=== PATIENT | male | born 1975 | race Caucasian/White ===

== ENCOUNTER 2016-12-11 07:35 | Emergency (ER) ==
[2016-12-11 07:40] VITALS: BP 148/89; TEMP 98.5; BMI 42.3
--- NOTE | 2016-12-11 08:20 | DI ---
Exam: Three x-rays of the left hand. Reason for exam: Fall on outstretched hand. COMPARISON: X-rays of the left fingers performed on 08/31/2007 FINDINGS: No acute fracture or dislocation. The joint spaces are relatively well maintained. No un explained calcific soft tissue densities or radiopaque retained foreign bodies. Impression: No acute fracture or dislocation in the left hand.
--- NOTE | 2016-12-11 08:21 | DI ---
EXAM: Three views of the left wrist. History: Left wrist trauma. Findings: No acute fracture or dislocation. Joint spaces are preserved. No radiopaque foreign bod ies. Soft tissue swelling at the wrist and forearm. Impression: No acute osseous abnormality. Soft tissue swelling.
[2016-12-11] MEDS ORDERED: NAPROSYN PO STA (08:48)
[2016-12-11] MEDS ORDERED: MOTRIN PO STA (09:02)
--- NOTE | 2016-12-11 09:16 | ED.PDOC ---
General ED Provider: Dr. JI SMALLWOOD JR Chief Complaint: Wrist Pain/Injury Stated Complaint: getting ready for work this am--put hand down to prevent fall and felt/heard pop to left wrist--now has burning sensation and pain to wrist and fingertips--limited rom noted. [ End ] Time Seen by Physician: 07:50 Mode of Arrival: Walk-In Information Source: Patient Exam Limitations: No limitations [facility] and T[facility] Documentation Reviewed and Agree: No Review of Systems - Review Of Systems Constitutional: Reports: No symptoms Eyes: Reports: No symptoms Ears, Nose, Mouth, Throat: Reports: No symptoms Respiratory: Reports: No symptoms Cardiac: Reports: No symptoms, Edema (left hand and wrist) GI: Reports: No symptoms : Reports: No symptoms Musculoskeletal: Reports: Joint pain (left wrist) Skin: Reports: No symptoms Neurological: Reports: No symptoms Endocrine: Reports: No symptoms Hematologic/Lymphatic: Reports: No symptoms All Other Systems: Other Past Medical History - Past Medical History Endocrine: Reports: Dyslipidemia Cardiovascular: Reports: Hypertension Respiratory: Reports: None Hematological: Reports: None Gastrointestinal: Reports: GERD Genitourinary: Reports: None Neuro/Psych: Reports: Anxiety, Depression, Bipolar Disorder (POSS BIPOLAR AND ANXIETY) Musculoskeletal: Reports: None Cancer: Reports: None - Surgical History General Surgical History: Reports: None - Family History Family History: Reports: Unknown - Social History Smoking Status: Former smoker Hx Substance Use: No Alcohol Screening: Occasionally Physical Exam - Physical Exam Appearance: Well-appearing, Obese Pain Distress: Moderate Eyes: SUKH, EOMI, Conjunctiva clear ENT: Ears normal, Nose normal, Oropharynx normal Neck: Supple Respiratory: Airway patent, Breath sounds clear, Breath sounds equal, Respirations nonlabored Cardiovascular: RRR, Pulses normal, No rub, No murmur GI/: Soft, Nontender, No masses, Bowel sounds normal, No Organomegaly Musculoskeletal: Normal strength, No calf tenderness, Limited ROM (left wrist), Edema (left hand) Skin: Warm, Dry, Normal color (note swelling) Neurological: Sensation intact, Motor intact, Reflexes intact, Cranial nerves intact, Alert, Oriented Psychiatric: Affect appropriate, Mood appropriate Critical Care Note - Critical Care Note Total Time (mins): 5 Course - Course Orders, Labs, Meds: Orders Category Date Time Status TONY [ED TONY WRAP] .ONCE EMERGENCY 04/11/17 09:08 Active ED SPLINT APPLICATION .ONCE EMERGENCY 12/11/16 09:08 Active Ice Pack [ED APPLY ICE AFFECTED AREA] .ONCE EMERGENCY 12/11/16 07:56 Active Ibuprofen [Motrin] MEDS 12/11/16 09:02 Discontinued 800 mg PO ONCE STA Naproxen [Naprosyn] MEDS 12/11/16 08:48 Discontinued 500 mg PO ONCE STA HAND, LEFT 3 VIEWS Stat RADS 12/11/16 07:54 Completed WRIST, LEFT 3 VIEWS Stat RADS 12/11/16 07:54 Completed Medications Discontinued Medications Generic Name Dose Route Start Last Admin Trade Name Freq PRN Reason Stop Dose Admin Ibuprofen 800 mg 12/11/16 09:02 Motrin PO 12/11/16 09:03 ONCE STA Naproxen 500 mg 12/11/16 08:48 12/11/16 08:57 Naprosyn PO 12/11/16 08:49 Not Given ONCE STA Vital Signs: Temp Pulse Resp BP Pulse Ox 12/11/16 07:35 98.5 F 73 20 148/89 H 96 Departure - Departure Time of Disposition: 09:10 Disposition: HOME SELF-CARE Discharge Problem: Injury of wrist Instructions: Wrist Sprain (ED) Condition: Good Pt referred to PMD for follow-up: Yes Additional Instructions: rest- off work for three day ice 20 minutes three times a day tony for comfort sling for comfort recheck one week repeat x-rays if not resolved elevate arm above heart one hour twice a day may use Motrin for pain Allergies/Adverse Reactions: Allergies aspirin Adverse Reaction (Verified 12/11/16 07:42) codeine Adverse Reaction (Verified 12/11/16 07:42) Home Medications: Ambulatory Orders Ibuprofen 800 mg PO DIRECTED PRN 04/12/16
== END 2016-12-11 09:25 | disposition home or self-care (01) ==
LOC: ED 07:35
DX: S63.502A Unspecified sprain of left wrist, initial encounter (principal); W19.XXXA Unspecified fall, initial encounter
CPT/HCPCS: 99283

== ENCOUNTER 2017-01-05 16:11 | Emergency (ER) ==
[2017-01-05 16:19] VITALS: BP 175/101; TEMP 98.8; BMI 40.6
[2017-01-05] MEDS ORDERED: SODIUM CHLORIDE 1,000 ML IV STA (16:22)
[2017-01-05 16:44] LABS: BASOPHILS # (AUTO) 0.1 K/uL (0-0.2); BASOPHILS % (AUTO) 0.6 % (0.0-3.0); EOSINOPHILS % (AUTO) 0.5 % (0.0-7.0); HEMATOCRIT 44.6 % (42.0-52.0); HEMOGLOBIN 15.2 g/dl (14.0-18.0); IMMATURE GRANULOCYTE % (AUTO) 0.2 % (0.0-5.0); LYMPHOCYTES # (AUTO) 1.9 K/uL (0.60-3.4); LYMPHOCYTES % (AUTO) 22.3 (10.0-50.0); MEAN CORPUSCULAR HEMOGLOBIN 28.3 pg (27.0-31.0); MEAN CORPUSCULAR HGB CONC 34.1 (31.8-35.4); MEAN CORPUSCULAR VOLUME 82.9 fl (80.0-94.0); MONOCYTES # (AUTO) 0.4 K/uL (0.4-2.0); MONOCYTES % (AUTO) 4.6 (0-10); NEUTROPHILS # (AUTO) 6.1 K/ul (2.0-6.9); NEUTROPHILS % (AUTO) 71.8; PLATELET COUNT 299 10^3/uL (140-440); RED BLOOD COUNT 5.38 10^6/ul (4.70-6.10); WHITE BLOOD COUNT 8.48 K/ul (4.2-10.2)
[2017-01-05] MEDS: APRESOLINE PO STA (17:17)
[2017-01-05 17:24] LABS: ALANINE AMINOTRANSFERASE 24 U/L (12-78); ALBUMIN 4.1 g/dL (3.4-5.0); ALBUMIN/GLOBULIN RATIO 1.21; ALKALINE PHOSPHATASE 55 U/L (50-136); ANION GAP 11.8; ASPARTATE AMINO TRANSFERASE 19 U/L (15-37); BILIRUBIN,TOTAL 0.58 mg/dL (0.00-1.20); BLOOD UREA NITROGEN 12 mg/dL (7-18); CALCIUM 9.2 mg/dL (8.2-10.2); CARBON DIOXIDE 23 mmol/L (21-32); CHLORIDE 108 mmol/L (98-107); CREATINE KINASE 102 U/L; CREATININE 1.09 mg/dL (0.60-1.10); GLUCOSE 152 mg/dL (70-100); MAGNESIUM 2.4 mg/dL (1.7-2.2); POTASSIUM 3.8 mmol/L (3.5-5.1); SODIUM 139 mmol/L (136-145); TOTAL PROTEIN 7.5 g/dL (6.4-8.2)
--- NOTE | 2017-01-05 17:45 | ED.PDOC ---
General ED Provider: Dr. CASH LEDEZMA Chief Complaint: Palpitations Stated Complaint: Patient comes to the ER with complains of heart pounding. Denies any chest pain. States he started taking diet pills to day to help him loose weight. [place] same as he did when he was first diagnosed with high blood pressure. Time Seen by Physician: 16:20 Mode of Arrival: Walk-In Information Source: Patient Exam Limitations: No limitations [facility] and Triage Documentation Reviewed and Agree: Yes Cardiovascular Complaint Exam - Palpitations Complaint/Exam Onset/Duration: 1 DAY Timing: Constant Initial Severity: Moderate Current Severity: Moderate Character: Reports: Pounding Aggravating: Reports: Exertion, Caffeine (AND DIET PILLS ) Alleviating: Reports: None Associated Signs and Symptoms: Reports: Lightheadedness. Denies: Dizziness, Chest pain, Shortness of breath, Diaphoresis, Nausea, Vomiting Related Surgical History: Reports: None Cardiac Risk Factors: Reports: Hypertension Pulmonary Embolism Risk Factors: Reports: None Atrial Fibrillation Risk Factors: Reports: Hypertension Thyroid Exam: Normal Quality Indicator For Non-Traumatic Chest Pain/Syncope: EKG Performed Review of Systems - Review Of Systems Constitutional: Reports: No symptoms Eyes: Reports: No symptoms Ears, Nose, Mouth, Throat: Reports: No symptoms Respiratory: Reports: No symptoms Cardiac: Reports: Palpitations GI: Reports: No symptoms : Reports: No symptoms Musculoskeletal: Reports: No symptoms Skin: Reports: No symptoms Neurological: Reports: No symptoms Endocrine: Reports: No symptoms Hematologic/Lymphatic: Reports: No symptoms All Other Systems: Reviewed and Negative Past Medical History - Past Medical History Endocrine: Reports: Dyslipidemia Cardiovascular: Reports: Hypertension Respiratory: Reports: None Hematological: Reports: None Gastrointestinal: Reports: GERD Genitourinary: Reports: None Neuro/Psych: Reports: Anxiety, Depression, Bipolar Disorder (POSS BIPOLAR AND ANXIETY) Musculoskeletal: Reports: None Cancer: Reports: None - Surgical History General Surgical History: Reports: None - Family History Family History: Reports: Unknown - Social History Smoking Status: Former smoker Hx Substance Use: No Alcohol Screening: Occasionally - Immunizations Tetanus Shot up to Date: Yes Physical Exam - Physical Exam Appearance: Ill-appearing, Obese Eyes: SUKH, EOMI, Conjunctiva clear ENT: Ears normal, Nose normal, Oropharynx normal Neck: Supple Respiratory: Airway patent, Breath sounds clear, Breath sounds equal, Respirations nonlabored Cardiovascular: Pulses normal, No rub, No murmur, Tachycardia GI/: Soft, Nontender, No masses, Bowel sounds normal, No Organomegaly Musculoskeletal: Normal strength, ROM intact, No edema, No calf tenderness Skin: Warm, Dry, Normal color Neurological: Sensation intact, Motor intact, Reflexes intact, Cranial nerves intact, Alert, Oriented Psychiatric: Anxious Interpretation - Program Director [employer] Time of Program Director [employer] Interpretation: 16:20 Rate: Tachy - EKG Interpretation Time of EKG #1: 16:21 Rate: Tachy Rhythm: Sinus Ectopy: None [place]: NL ST Segment: Normal Re-Evaluation - Re-Evaluation Time of Re-Evaluation: 17:57 Status: Improved Vital Signs Stable: Yes (148/86, P 86 ) Pain Level: none Appearance: NAD Critical Care Note - Critical Care Note Total Time (mins): 15 Course - Course Hematology/Chemistry: 01/05/17 16:35 01/05/17 16:35 Orders, Labs, Meds: Lab Review 01/05/17 01/05/17 16:35 17:30 WBC 8.48 RBC 5.38 Hgb 15.2 Hct 44.6 MCV 82.9 MCH 28.3 MCHC 34.1 RDW Coeff of Zeinab 12.9 Plt Count 299 Immature Gran % (Auto) 0.2 Neut % (Auto) 71.8 Lymph % (Auto) 22.3 Price % (Auto) 4.6 Eos % (Auto) 0.5 Baso % (Auto) 0.6 Immature Gran # (Auto) 0.0 Neut # 6.1 Lymph # 1.9 Price # 0.4 Eos # 0.0 Baso # 0.1 Sodium 139 Potassium 3.8 Chloride 108 H Carbon Dioxide 23 Anion Gap 11.8 BUN 12 Creatinine 1.09 Estimated GFR (MDRD) 75.00 BUN/Creatinine Ratio 11.00 Glucose 152 H Calcium 9.2 Magnesium 2.4 H Total Bilirubin 0.58 AST 19 ALT 24 Alkaline Phosphatase 55 Total Creatine Kinase 102 Troponin I < 0.0100 B-Natriuretic Peptide < 10 Total Protein 7.5 Albumin 4.1 Globulin 3.4 Albumin/Globulin Ratio 1.21 TSH 1.196 Urine Opiates Screen Negative Ur Oxycodone Screen Negative Urine Methadone Screen Negative Ur Propoxyphene Screen Negative Ur Barbiturates Screen Negative U Tricyclic Antidepress Negative Ur Phencyclidine Scrn Negative Ur Amphetamine Screen Positive U Methamphetamines Scrn Negative U Benzodiazepines Scrn Negative Urine Cocaine Screen Negative U Cannabinoids Screen Negative Orders Category Date Time Status EKG-(ED ONLY) Stat CARDIO 01/05/17 16:22 Completed ED IV/MEDIPORT/POWERPORT .ONCE EMERGENCY 01/05/17 16:22 Active B-TYPE NATRIURETIC PEPTIDE Stat LAB 01/05/17 16:35 Completed CBC W/ AUTO DIFF Stat LAB 01/05/17 16:35 Completed COMPREHENSIVE METABOLIC PANEL Stat LAB 01/05/17 16:35 Completed CREATINE KINASE Stat LAB 01/05/17 16:35 Completed DRUG SCREEN (RAPID FOR ED) [DRUG SCREEN, URINE, RAPID] LAB 01/05/17 17:30 Completed Stat MAGNESIUM Stat LAB 01/05/17 16:35 Completed THYROID STIMULATING HORMONE Stat LAB 01/05/17 16:35 Completed TROPONIN I Stat LAB 01/05/17 16:35 Completed 0.9 % Sodium Chloride [Saline Flush] MEDS 01/05/17 16:22 Discontinued 1 syr IVF PRN PRN Hydralazine HCl [Apresoline] MEDS 01/05/17 17:10 Discontinued 50 mg PO ONCE STA Medications Discontinued Medications Generic Name Dose Route Start Last Admin Trade Name Freq PRN Reason Stop Dose Admin Hydralazine HCl 50 mg 01/05/17 17:10 01/05/17 17:17 Apresoline PO 01/05/17 17:11 50 mg ONCE STA Administration Sodium Chloride 1 syr 01/05/17 16:22 Saline Flush IVF PRN PRN To flush IV Vital Signs: Temp Pulse Resp BP Pulse Ox 01/05/17 16:11 98.8 F 120 H 24 175/101 H 100 MAHNAZ Risk Score Age >/= 65: No >/= 3 CAD Risk Factors: No Known CAD (Stenosis >/= 50%): No ASA Use in Past 7 Days: No Severe Angina (>/= 2 episodes in 24 hours): No EKG ST Changes >/= 0.5mm: No Postive Cardiac Marker: No MAHNAZ Total Score: 0 MAHNAZ Risk Score: Risk Score Odds of by 30D 0 0.1 (0.1-0.2) 1 0.3 (0.2-0.3) 2 0.4 (0.3-0.5) 3 0.7 (0.6-0.9) 4 1.2 (1.0-1.5) 5 2.2 (1.9-2.6) 6 3.0 (2.5-3.6) 7 4.8 (3.8-6.1) Departure - Departure Time of Disposition: 17:45 Disposition: HOME SELF-CARE Discharge Problem: Palpitations, Hypertension Instructions: Chronic Hypertension (ED), Palpitations (ED) Condition: Stable Pt referred to PMD for follow-up: Yes Additional Instructions: STOP YOUR NEW DIET PILL/REGIMEN. TALK TO YOUR DOCTOR ABOUT SAFER WAYS TO LOSE WEIGHT FOLLOW UP WITH PCP IN 3 DAY CONTINUE HOME BLOOD PRESSURE MEDICATIONS. Allergies/Adverse Reactions: Allergies aspirin Adverse Reaction (Verified 01/05/17 16:21) codeine Adverse Reaction (Verified 01/05/17 16:21) Home Medications: Ambulatory Orders Clonidine HCl 1 tab PO BID PRN 01/05/17 Losartan/Hydrochlorothiazide [Losartan-Hctz 100-12.5 mg Tab] 1 tab PO DAILY 02/16 Disposition Discussed With: Patient, Family
[2017-01-05 18:11] LABS: COCAIN SCREEN,URINE NEGATIVE (NEGATIVE)
== END 2017-01-05 18:13 | disposition home or self-care (01) ==
LOC: ED 16:11
DX: R00.2 Palpitations (principal); I10 Essential (primary) hypertension; R42 Dizziness and giddiness; E78.5 Hyperlipidemia, unspecified; Z79.899 Other long term (current) drug therapy
CPT/HCPCS: 36415; 80053; 80306; 82550; 83735; 83880; 84443; 84484; 85025; 93005; 93010; 99283

== ENCOUNTER 2017-12-10 07:27 | Emergency (ER) ==
[2017-12-10 07:35] VITALS: TEMP 97.9; BMI 42.9
--- NOTE | 2017-12-10 08:12 | ED.PDOC ---
General ED Provider: Dr. LUKE HENNESSY Chief Complaint: Dizziness Stated Complaint: PATIENT COMPLAINS OF DIZZINESS WITH ONSET ON SATURDAY DECEMBER 09, 2017. STATES HE WAS WORKING WHEN ONSET OCCURRED AND WAS INTERMITTENT IN NATURE. STATES HE AWAKENED THIS AM AND AGAIN EXPERIENCE DIZZINESS, ESPECIALLY WITH EYES BEING CLOSED. HE STATED HE HAD SIMILAR EPISODE WHEN HIS BP WAS ELEVATED AFTER MED CHANGE. HAS BEEN TAKING LOSARTAN AND CLONIDINE SINCE LAST JULY.(2017) Time Seen by Physician: 08:06 Mode of Arrival: Walk-In Information Source: Patient Exam Limitations: No limitations Primary Care Provider: BROCK COLES Referred to ED by: Other (SELF) Nursing and Triage Documentation Reviewed and Agree: Yes Reviewed sepsis parameters & appropriate labs ordered?: Yes System Inflammatory Response Syndrome: Not Applicable Sepsis Protocol: For patient's 13 years and over: Temp is 96.8 and below OR 101 and greater Pulse >90 BPM Resp >20/minute Acutely Altered Mental Status Are patient's symptoms suggestive of a new infection, such as: -Pneumonia -Skin, Soft Tissue -Endocarditis -UTI -Bone, Joint Infection -Implantable Device -Acute Abdominal Infection -Wound Infection -Meningitis -Blood Stream Catheter Infection -Unknown System Inflammatory Response Syndrome: Not Applicable Neurological Complaint Exam - Dizziness Complaint/Exam Onset: Sudden Duration: < 24 HRS Symptoms Are: Resolved Timing: Intermittent Episodes Lasting: Minutes Initial Severity: Moderate Current Severity: None Character: Reports: Lightheaded, Dizzy Aggravating: Reports: Exertion, Position change, Change in head position Alleviating: Reports: Rest Related History: Similar episode Cardiac Risk Factors: Reports: Hypertension CVA Risk Factors: Reports: Hypertension Related Surgical History: Reports: None JVD Present: No Carotid Bruit Present: No Nystagmus Present: No Gag Reflex Present: Yes Meningeal Signs Positive: No Focal Weakness: Present: None Focal Sensory Loss: Present: None Gait: Normal [id number]: Normal Findings Differential Diagnoses: BPPV, Medication reaction, Other (Hypertension; ) Review of Systems - Review Of Systems Constitutional: Reports: No symptoms. Denies: Chills Eyes: Reports: No symptoms. Denies: Blindness, Blurred vision, Decreased acuity , Photophobia Ears, Nose, Mouth, Throat: Reports: No symptoms Respiratory: Reports: No symptoms Cardiac: Reports: No symptoms, Chest pain. Denies: Palpitations GI: Reports: No symptoms. Denies: Abdominal pain, Nausea, Rectal bleeding, Vomiting : Reports: No symptoms Musculoskeletal: Reports: No symptoms Skin: Reports: No symptoms Neurological: Reports: No symptoms, Other (Dizziness) Endocrine: Reports: No symptoms Hematologic/Lymphatic: Reports: No symptoms All Other Systems: Reviewed and Negative Past Medical History - Past Medical History Endocrine: Reports: Dyslipidemia Cardiovascular: Reports: Hypertension Respiratory: Reports: None Hematological: Reports: None Gastrointestinal: Reports: GERD Genitourinary: Reports: None Neuro/Psych: Reports: Anxiety, Depression, Bipolar Disorder (POSS BIPOLAR AND ANXIETY) Musculoskeletal: Reports: None Cancer: Reports: None - Surgical History General Surgical History: Reports: None - Family History Family History: Reports: Unknown - Social History Smoking Status: Vaping Hx Substance Use: No Alcohol Screening: Occasionally Physical Exam - Physical Exam Appearance: Obese Ill-appearing: None Pain Distress: None Eyes: SUKH, EOMI, Conjunctiva clear ENT: Ears normal, Nose normal, Oropharynx normal Neck: Supple Respiratory: Airway patent, Breath sounds clear, Breath sounds equal, Respirations nonlabored Cardiovascular: RRR, Pulses normal, No rub, No murmur GI/: Soft, Nontender, No masses, Bowel sounds normal, No Organomegaly Musculoskeletal: Normal strength, ROM intact, No edema, No calf tenderness Skin: Warm, Dry, Normal color Neurological: Sensation intact, Motor intact, Reflexes intact, Cranial nerves intact, Alert, Oriented Psychiatric: Affect appropriate, Mood appropriate Critical Care Note - Critical Care Note Total Time (mins): 0 Course - Course Hematology/Chemistry: 12/10/17 08:40 12/10/17 08:40 Orders, Labs, Meds: Lab Review 12/10/17 12/10/17 12/10/17 08:40 08:40 09:50 WBC 7.01 RBC 5.15 Hgb 14.6 Hct 42.8 MCV 83.1 MCH 28.3 MCHC 34.1 RDW Coeff of Zeinab 12.8 Plt Count 242 Immature Gran % (Auto) 0.3 Neut % (Auto) 61.9 Lymph % (Auto) 27.4 [place] % (Auto) 6.8 Eos % (Auto) 2.9 Baso % (Auto) 0.7 Immature Gran # (Auto) 0.0 Neut # (Auto) 4.3 Lymph # (Auto) 1.9 [place]y # (Auto) 0.5 Eos # (Auto) 0.2 Baso # (Auto) 0.1 Sodium 140 Potassium 4.0 Chloride 106 Carbon Dioxide 26 Anion Gap 12.0 BUN 11 Creatinine 0.95 Estimated GFR (MDRD) 88.00 BUN/Creatinine Ratio 11.57 Glucose 140 H Calcium 9.1 Total Bilirubin 0.7 AST 17 ALT 23 Alkaline Phosphatase 64 Troponin I < 0.0100 Total Protein 7.1 Albumin 3.8 Globulin 3.3 Albumin/Globulin Ratio 1.15 Urine Color Urine Clarity Urine pH Ur Specific [place] Urine Protein Urine Glucose (UA) Urine Ketones Urine Blood Urine Nitrite Urine Bilirubin Urine Urobilinogen Ur Leukocyte Esterase Urine Opiates Screen Negative Ur Oxycodone Screen Negative Urine Methadone Screen Negative Ur Propoxyphene Screen Negative Ur Barbiturates Screen Negative U Tricyclic Antidepress Negative Ur Phencyclidine Scrn Negative Ur Amphetamine Screen Negative U Methamphetamines Scrn Negative U Benzodiazepines Scrn Negative Urine Cocaine Screen Negative U Cannabinoids Screen Negative 12/10/17 09:50 WBC RBC Hgb Hct MCV MCH MCHC RDW Coeff of Zeinab Plt Count Immature Gran % (Auto) Neut % (Auto) Lymph % (Auto) [place] % (Auto) Eos % (Auto) Baso % (Auto) Immature Gran # (Auto) Neut # (Auto) Lymph # (Auto) [place] # (Auto) Eos # (Auto) Baso # (Auto) Sodium Potassium Chloride Carbon Dioxide Anion Gap BUN Creatinine Estimated GFR (MDRD) BUN/Creatinine Ratio Glucose Calcium Total Bilirubin AST ALT Alkaline Phosphatase Troponin I Total Protein Albumin Globulin Albumin/Globulin Ratio Urine Color Yellow Urine Clarity Clear Urine pH 8.5 Ur Specific [place] 1.020 Urine Protein Negative Urine Glucose (UA) Negative Urine Ketones Negative Urine Blood Negative Urine Nitrite Negative Urine Bilirubin Negative Urine Urobilinogen 0.2 Ur Leukocyte Esterase Negative Urine Opiates Screen Ur Oxycodone Screen Urine Methadone Screen Ur Propoxyphene Screen Ur Barbiturates Screen U Tricyclic Antidepress Ur Phencyclidine Scrn Ur Amphetamine Screen U Methamphetamines Scrn U Benzodiazepines Scrn Urine Cocaine Screen U Cannabinoids Screen Orders Category Date Time Status EKG-(ED ONLY) Stat CARDIO 12/10/17 08:23 Completed CBC W/ AUTO DIFF Stat LAB 12/10/17 08:40 Completed CMP [COMPREHENSIVE METABOLIC PANEL] Stat LAB 12/10/17 08:40 Completed TROPONIN I Stat LAB 12/10/17 08:40 Completed UA [URINALYSIS C & S IF INDICATED] Stat LAB 12/10/17 09:50 Completed URINE DRUG SCREEN (RAPID FOR ED) [DRUG SCREEN, URINE, LAB 12/10/17 09:50 Completed RAPID] Stat CT HEAD W/O CONTRAST Stat RADS 12/10/17 09:33 Completed Vital Signs: Temp Pulse Resp BP Pulse Ox 12/10/17 08:30 66 14 131/84 12/10/17 07:28 97.9 F 81 20 159/97 H 95 Departure - Departure Time of Disposition: 10:40 Disposition: HOME SELF-CARE Discharge Problem: Dizziness, Hyperglycemia Hypertension Qualifiers: Hypertension type: essential hypertension Qualified Code(s): I10 - Essential ( primary) hypertension Instructions: Lightheadedness (ED), Heart Healthy Diet (ED), Hypertension and Diabetes (ED), DASH Eating Plan (ED) Condition: Good Pt referred to PMD for follow-up: Yes (Dr Ratliff in next 7 days) IPMP verified?: No Additional Instructions: CT WNL Discussed Discharge, Diet( Heart Healthy and restricted Carbs and simple sugars) , improving cardiovascular fitness, exercise daily, restrict saturated fats and simple carbs. Remain on same BP meds Monitor BP at home Return to work tomorrow Follow up Dr Ratliff in next 1 week Allergies/Adverse Reactions: Allergies aspirin Adverse Reaction (Verified 12/10/17 07:37) codeine Adverse Reaction (Verified 12/10/17 07:37) Disposition Discussed With: Patient, Family Additional Information: 0930: Patient feeling better. States hx of recurrent dizziness for several years always attributable to hi BP being elevated. Occasionally nauseated. Denies LOC or gait abnormality No previous CT scan Head. Will order. CT WNL Discussed Discharge, Diet, improving cardiovascular fitness, exercise daily, restrict saturated fats and simple carbs. Remain on same BP meds Monitor BP at home Follow up Dr Ratliff in next 1 week
[2017-12-10 08:31] VITALS: BP 131/84
--- NOTE | 2017-12-10 10:09 | CT ---
EXAM: CT BRAIN HISTORY: Dizziness, elevated blood pressure TECHNIQUE: CT brain without intravenous contrast. 5-mm axial sections with Reformations. COMPARISON: None FINDINGS: Brain is unremarkable without evidence of hemorrhage or large vessel distribution recent ischemic in farction. There is no suggestion of acute hydrocephalus or subdural fluid collection. No mass or ma ss effect. Cranium is within normal limits. Mastoid processes are aerated. The visualized paranasal sinuses re vealed possible mild mucosal thickening of the left maxillary sinus. IMPRESSION: 1. No acute intracranial process. 2. Questionable chronic paranasal sinusitis.
== END 2017-12-10 10:59 | disposition home or self-care (01) ==
LOC: ED 07:27
DX: R42 Dizziness and giddiness (principal); E11.65 Type 2 diabetes mellitus with hyperglycemia; I10 Essential (primary) hypertension
CPT/HCPCS: 36415; 80053; 80306; 81001; 84484; 85025; 93005; 93010; 99283

== ENCOUNTER 2017-12-16 12:40 | Outpatient (CLI) | END 2017-12-16 12:41 | disposition home or self-care (01) | LOC: LAB 12:40 | PROVIDERS: ATTEND Emergency Medicine | DX: R73.9 Hyperglycemia, unspecified (principal); I10 Essential (primary) hypertension; F41.1 Generalized anxiety disorder; E66.9 Obesity, unspecified | CPT/HCPCS: 36415; 80061; 83036; 84443 ==

== ENCOUNTER 2018-05-21 06:56 | Outpatient (CLI) | END 2018-05-21 06:57 | disposition home or self-care (01) | LOC: LAB 06:56 | PROVIDERS: ATTEND Nurse Practitioner Family | DX: F52.21 Male erectile disorder (principal) | CPT/HCPCS: 36415; 84403 ==

== ENCOUNTER 2018-12-02 07:30 | Emergency (ER) | payer OTHER ==
[2018-12-02 07:36] VITALS: TEMP 99.4; BMI 43.0
--- NOTE | 2018-12-02 08:26 | ED.PDOC ---
General ED Provider: Dr. TYREE SHIELDS Chief Complaint: Dizziness Stated Complaint: taking BP meds,clonidine 0.1 mg qd and Losartan 100 mg qd with a diuretic,. for less tyan a year,Yet his BNP is unstable and sufers fluctuqatyions with. palpitations,dizziness.Would like to check,Quintin chest pain, edema or sob. Time Seen by Physician: 07:40 Mode of Arrival: Walk-In Information Source: Patient Exam Limitations: No limitations Primary Care Provider: AUDREY SAUNDERS Nursing and Triage Documentation Reviewed and Agree: Yes Does patient meet sepsis criteria?: No System Inflammatory Response Syndrome: Not Applicable Sepsis Protocol: For patient's 13 years and over: Temp is 96.8 and below OR 101 and greater Pulse >90 BPM Resp >20/minute Acutely Altered Mental Status Are patient's symptoms suggestive of a new infection, such as: -Pneumonia -Skin, Soft Tissue -Endocarditis -UTI -Bone, Joint Infection -Implantable Device -Acute Abdominal Infection -Wound Infection -Meningitis -Blood Stream Catheter Infection -Unknown Cardiovascular Complaint Exam - Hypertension Complaint/Exam Onset/Duration: HYPERTENSION Symptoms Are: Still present Timing: Intermittent Reported B/P Prior to Arrival: Fluctuating but no record kept,initial on admit 166/98mthan 145/90 Aggravating: Reports: Exertion Alleviating: Reports: Rest Associated Signs and Symptoms: Reports: Anxiety, Dizziness Related History: Reports: Current Ca Chi.Darian, Current Diuretic, Other Related Surgical History: Reports: None Cardiac Risk Factors: Reports: Hypertension Recent Change in Medications: No JVD Present: No Carotid Bruit Present: No Differential Diagnoses: Hypertension, Hypertensive Urgency, Hyperthyroidism, Migraine Quality Indicator For Non-Traumatic Chest Pain/Syncope: EKG Performed Review of Systems - Review Of Systems Constitutional: Reports: Other Eyes: Reports: No symptoms Ears, Nose, Mouth, Throat: Reports: No symptoms Respiratory: Reports: No symptoms Cardiac: Reports: Lightheadedness GI: Reports: No symptoms : Reports: No symptoms Musculoskeletal: Reports: No symptoms Neurological: Reports: No symptoms Endocrine: Reports: No symptoms Hematologic/Lymphatic: Reports: No symptoms All Other Systems: Reviewed and Negative Past Medical History - Past Medical History Endocrine: Reports: Dyslipidemia Cardiovascular: Reports: Hypertension Respiratory: Reports: None Hematological: Reports: None Gastrointestinal: Reports: GERD Genitourinary: Reports: None Neuro/Psych: Reports: Anxiety, Depression, Bipolar Disorder (POSS BIPOLAR AND ANXIETY) Musculoskeletal: Reports: None Cancer: Reports: None - Surgical History General Surgical History: Reports: None - Family History Family History: Reports: Unknown - Social History Smoking Status: Vaping Hx Substance Use: No Alcohol Screening: Occasionally Physical Exam - Physical Exam Appearance: Well-appearing, Obese Ill-appearing: None Pain Distress: None Eyes: SUKH ENT: Ears normal Neck: Supple Respiratory: Airway patent Cardiovascular: RRR, Pulses normal GI/: Soft, Nontender Musculoskeletal: Normal strength Skin: Warm, Dry Neurological: Sensation intact Psychiatric: Affect appropriate Critical Care Note - Critical Care Note Total Time (mins): 0 Course - Course Orders, Labs, Meds: Orders Category Date Time Status EKG-(ED ONLY) Stat CARDIO 12/02/18 08:36 Completed Vital signs [ED VITAL SIGNS] .ONCE EMERGENCY 12/02/18 08:45 Active CBC W/ AUTO DIFF Stat LAB 12/02/18 08:38 Ordered COMPREHENSIVE METABOLIC PANEL Stat LAB 12/02/18 08:43 Ordered CREATINE KINASE Stat LAB 12/02/18 08:43 Ordered TROPONIN I Stat LAB 12/02/18 08:43 Ordered CHEST, 2 VIEWS PA & LAT Stat RADS 12/02/18 08:37 Completed Vital Signs: Temp Pulse Resp BP Pulse Ox 12/02/18 08:52 69 16 135/82 12/02/18 07:30 99.4 F 90 20 166/98 H 95 MAHNAZ Risk Score MAHNAZ Risk Score: Risk Score Odds of by 30D 0 0.1 (0.1-0.2) 1 0.3 (0.2-0.3) 2 0.4 (0.3-0.5) 3 0.7 (0.6-0.9) 4 1.2 (1.0-1.5) 5 2.2 (1.9-2.6) 6 3.0 (2.5-3.6) 7 4.8 (3.8-6.1) Departure - Departure Time of Disposition: 09:33 Disposition: HOME SELF-CARE Discharge Problem: Hypertension Instructions: Heart Healthy Diet (ED) Condition: Good Pt referred to PMD for follow-up: Yes (follow with PCP as scheduled) IPMP verified?: No Additional Instructions: resume taking Clonidine o.1 mg at the tid scheduke until upcoming visist with a regulat PCP as scheduled. Allergies/Adverse Reactions: Allergies aspirin Adverse Reaction (Verified 12/02/18 07:40) codeine Adverse Reaction (Verified 12/02/18 07:40) Disposition Discussed With: Patient
[2018-12-02 08:53] VITALS: BP 135/82
--- NOTE | 2018-12-02 09:11 | DI ---
EXAM: CHEST FRONTAL AND LATERAL VIEWS HISTORY: Unstable blood pressure. COMPARISON: 01/11/2016 FINDINGS: Heart size and mediastinal contour remain within normal limits. No acute infiltrates. Normal vascularity with no pleural fluid or pneumothorax. The bony thorax has no acute finding. IMPRESSION: No acute process.
== END 2018-12-02 09:47 | disposition home or self-care (01) ==
LOC: ED 07:30
DX: I10 Essential (primary) hypertension (principal); R42 Dizziness and giddiness; F41.9 Anxiety disorder, unspecified; E78.5 Hyperlipidemia, unspecified; Z72.0 Tobacco use
CPT/HCPCS: 93005; 93010; 99282